=== PATIENT | female | born 2000 | race Caucasian/White ===

== ENCOUNTER 2020-07-23 23:22 | Emergency (ER) | payer OTHER ==
[2020-07-23] MEDS ORDERED: ZYRTEC ALLERGY10 MG PO (23:38)
[2020-07-24] MEDS ORDERED: ZOVIRAX400 MG PO ×2 (00:34→00:38)
[2020-07-24] MEDS ORDERED: ACETAMINOPHEN-H1 TA2 PO (00:34)
[2020-07-24 01:01] LABS: URINE APPEARANCE CLOUDY; URINE BILIRUBIN NEGATIVE (NEGATIVE); URINE COLOR YELLOW; URINE GLUCOSE NEGATIVE (NEGATIVE); URINE KETONE NEGATIVE (NEGATIVE); URINE NITRATE NEGATIVE (NEGATIVE); URINE PROTEIN(semi-quant) TRACE mg/dL (NEGATIVE); URINE UROBILINOGEN NORMAL (NORMAL)
[2020-07-24 01:02] LABS: URINE BLOOD TRACE (NEGATIVE); URINE LEUKOCYTE ESTERASE NEGATIVE (NEGATIVE); URINE WBC 0-1 /hpf (0-3)
[2020-07-24 01:03] LABS: CLUE CELLS NOT OBSERVED (Not Observd)
[2020-07-24 01:41] VITALS: BP 128/92
== END 2020-07-24 01:42 | disposition home or self-care (01) ==
LOC: ED 23:22
PROVIDERS: Family Medicine
DX: R10.2 Pelvic and perineal pain (principal); Z88.0 Allergy status to penicillin
CPT/HCPCS: Q0111